=== PATIENT | male | born 1955 | race African-American/Black ===

== ENCOUNTER 2016-07-14 09:24 | Observation (INO) ==
[2016-07-14] MEDS ORDERED: NS 1,000 ML IV ONE (12:08)
[2016-07-14] MEDS ORDERED: LOVENOX 1 MG/KG SUBQ ONE (12:08)
[2016-07-14 12:33] LABS: BASO% 0.2 % (0.0-0.8); EOS# 0.16 X1000 (0.0-0.7); EOS% 2.4 % (0.0-10.0); HEMATOCRIT 44.2 % (42.0-52.0); HEMOGLOBIN 15.2 g/dL (14.0-18.0); IMM GRAN# 0.02 X1000 (0.0-0.04); IMM GRAN% 0.3 % (0.0-0.5); LYMPH# 2.02 X1000 (1.2-3.4); LYMPH% 30.4 % (20.5-51.1); MANUAL DIFF NEEDED? NO; MCH 21.3 PG (27-31); MCHC 34.4 g/dL (33-37); MCV 61.9 FL (81-99); MONO# 0.51 X1000 (0.11-0.59); MONO% 7.7 % (1.7-9.3); MPV 9.7 FL (7.4-10.4); PLT 241 X1000 (130-400); RBC 7.14 XMIL (4.7-6.1)
--- NOTE | 2016-07-14 12:35 | EKG Report ---
Test Performed on : 07/14/2016 12:26:53 PM Test Reason : CHEST PAIN Blood Pressure : / mmHG Vent. Rate : 080 BPM Atrial Rate : 080 BPM P-R Int : 164 ms QRS Dur : 072 ms QT Int : 366 ms P-R-T Axes : 040 086 008 degrees QTc Int : 422 ms Normal sinus rhythm. Normal ECG When compared with ECG of 26-MAR-2008 13:22, T wave inversion now evident in Inferior leads T wave amplitude has increased in Lateral leads Unconfirmed Result
[2016-07-14 12:44] LABS: PROTIME 13.5 Seconds (12.1-15.5)
[2016-07-14 12:45] LABS: PTT PL 27.5 Seconds (22.6-43.9)
[2016-07-14 12:46] LABS: AGAP 13; ALBUMIN 4.2 g/dL (3.5-5.0); ALKALINE PHOSPHATASE 65 U/L (32-122); BUN 16 mg/dL (8-22); CALCIUM 9.3 mg/dL (8.8-10.2); CHLORIDE 102 mmol/L (98-107); CK PROFILE 80 U/L (24-204); COSMO 282; GOT 11 U/L (10-34); GPT 10 U/L (10-44); MAGNESIUM 1.9 mg/dL (1.5-2.7); POTASSIUM 4.3 mmol/L (3.5-5.1); SODIUM 137 mmol/L (136-145); TCO2 22 mmol/L (25-35)
--- NOTE | 2016-07-14 12:54 | PROVIDER DOCUMENTATION ---
This chart was entered by Anisa Norman Scribe, acting as scribe for Saloni Cope MD. HPI-Musculoskeletal Pain/Inj - GENERAL Chief Complaint: Extremity Pain Stated Complaint: EXTREMITY PAIN/POSS BLOOD CLOT Time Seen by Provider: 07/14/16 09:48 Source: patient - HX OF PRESENT ILLNESS-MUSKULOSKELTAL Nature of Presenting Problem: Pt is 61 y/o M presents to the ED with R calf pain. Pt states recently started jogging every other day. Pt denies hx of blood clots. Pt denies trauma or injury. Quality of Pain: reports: aching Severity in ED: mild Onset/Duration: 2 days ago Timing: still present, intermittent Modifying Factors: improves with: nothing Any recent injury?: No Similar Symptoms Previously?: Yes Recently seen or treated by another doctor?: No - LOWER EXTREMITY PAIN/INJURY Lower Extremities Pain: knee: right (posterior), other: right (calf pain) Context / Method of Injury: reports: unknown Associated Symptoms: reports: weakness in legs/feet (R leg) Review of Systems - Adult - REVIEW OF SYSTEMS - ADULT Constitutional: denies: chills, fever Eyes: denies: blurred vision, double vision Ears, Nose, Mouth & Throat: denies: ear pain, nose pain, throat pain, throat swelling Cardiovascular: denies: chest pain, heart murmur, irregular heart rate Respiratory: denies: cough, shortness of breath, wheezing Gastrointestinal: denies: abdominal pain, diarrhea, frequent heartburn, nausea, vomiting Genitourinary: denies: dysuria, hesitency Musculoskeletal: reports: other (R calf pain). denies: bone pain, joint pain, neck pain Integumentary: reports: no symptoms reported Neurological: reports: no symptoms reported Psychiatric: reports: no symptoms reported Endocrine: reports: no symptoms reported Hematologic/Lymphatic: reports: no symptoms reported Allergic/Immunologic: reports: no symptoms reported All Other Systems: Reviewed and Negative Past History - Adult - PAST MEDICAL HISTORY-ADULT Review of Records: reports: Nursing Assessment Review, Medications Reviewed, Social history reviewed & non-contributory. Major Childhood Illnesses: reports: denies history Cardiovascular: reports: denies history Respiratory: reports: denies history Gastrointestinal: reports: denies history Obstetrical/Gynecological: reports: denies history Genitourinary: reports: denies history Musculoskeletal: reports: denies history Neurological: reports: denies history Endocrine/Immune: reports: denies history Other Conditions: reports: denies history - PRIOR SURGERIES/PROCEDURES Surgical/Procedure History: reports: other (kidney sx) - IMMUNIZATION STATUS Childhood Immunizations: See Nurse Assessment Flu Vaccine: See Nurse Assessment - FAMILY HISTORY Family History: reviewed, not pertinent - SOCIAL HISTORY Smoking: cigarettes, less than 1 pack/day Provider spent 3-5 mins advising pt. on dangers of tobacco.: Discussed manners to quit use, and f/u contacts for add'l counseling. Substance Use: denies Living Situation: family Physical Exam-Injury Related - Physical Exam-Injury Related Initial Vital Signs Reviewed: Yes General Appearance: appears well, alert, no apparent distress Eyes: PERRL/EOMI, pink conjunctivae, fundi clear, no AV nicking Head, Ears, Nose, Mouth & Throat: normocephalic/atraumatic, moist mucous membranes, normal ENT inspection, TMs normal, pharynx normal Neck: non-tender, full range of motion, supple, normal inspection Respiratory: chest non-tender, lungs clear, normal breath sounds, no pleuratic chest pain, no respiratory distress, no accessory muscle use Cardiovascular: normal peripheral pulses, regular rate, rhythm, no edema, no gallop, no JVD, no murmur Abdominal Exam: normal bowel sounds, non tender, soft, no organomegaly, no pulsatile mass Lymphatic: no adenopathy Back Exam: normal inspection, no CVA tenderness, no vertebral tenderness Extremity: normal range of motion, normal gait, normal inspection, no pedal edema, no calf tenderness, normal capillary refill, calf tenderness (R) Integumentary: normal color, warm/dry Neurologic: grossly normal Psych/Mental Status: normal mood/affect, oriented x 3 Progress - PLAN OF CARE/RESULTS Progress/Plan/Lab Results: Vital Signs - 8 hr 07/14/16 09:33 Temperature 96.9 F L Pulse Rate 93 H Respiratory Rate 18 Blood Pressure 116/79 O2 Sat by Pulse Oximetry 100 Laboratory Results - last 24 hr 07/14/16 07/14/16 07/14/16 10:23 12:13 12:13 WBC RBC Hgb Hct MCV MCH MCHC RDW Std Deviation Plt Count MPV Immature Gran % (Auto) Neut % (Auto) Lymph % (Auto) Burke % (Auto) Eos % (Auto) Baso % (Auto) Immature Gran # (Auto) Neut # (Auto) Lymph # (Auto) Burke # (Auto) Eos # (Auto) Baso # (Auto) PT INR APTT (Factor Assay) D-Dimer Sodium 137 Potassium 4.3 Chloride 102 Carbon Dioxide 22 L Anion Gap 13 BUN 16 Creatinine 0.9 Estimated GFR/1.73 m2 > 60 BUN/Creatinine Ratio 18 Glucose 223 H POC Glucose 230 H Estimat Average Glucose Hemoglobin A1c Calculated Osmolality 282 Calcium 9.3 Magnesium 1.9 Total Bilirubin 0.40 AST 11 ALT 10 Alkaline Phosphatase 65 Creatine Kinase 80 Troponin T < 0.010 Lta-O-Bidzovzukfg Pept Total Protein 7.0 Albumin 4.2 Globulin 3.0 Albumin/Globulin Ratio 2.0 07/14/16 07/14/16 07/14/16 12:13 12:13 12:13 WBC 6.65 RBC 7.14 H Hgb 15.2 Hct 44.2 MCV 61.9 L MCH 21.3 L MCHC 34.4 RDW Std Deviation 15.9 H Plt Count 241 MPV 9.7 Immature Gran % (Auto) 0.3 Neut % (Auto) 59.0 Lymph % (Auto) 30.4 Burke % (Auto) 7.7 Eos % (Auto) 2.4 Baso % (Auto) 0.2 Immature Gran # (Auto) 0.02 Neut # (Auto) 3.93 Lymph # (Auto) 2.02 Burke # (Auto) 0.51 Eos # (Auto) 0.16 Baso # (Auto) 0.01 PT 13.5 INR 1.00 APTT (Factor Assay) 27.5 D-Dimer 3.74 H Sodium Potassium Chloride Carbon Dioxide Anion Gap BUN Creatinine Estimated GFR/1.73 m2 BUN/Creatinine Ratio Glucose POC Glucose Estimat Average Glucose Hemoglobin A1c Calculated Osmolality Calcium Magnesium Total Bilirubin AST ALT Alkaline Phosphatase Creatine Kinase Troponin T Xkf-D-Fknszgvxqpn Pept < 5 L Total Protein Albumin Globulin Albumin/Globulin Ratio 07/14/16 12:13 WBC RBC Hgb Hct MCV MCH MCHC RDW Std Deviation Plt Count MPV Immature Gran % (Auto) Neut % (Auto) Lymph % (Auto) Burke % (Auto) Eos % (Auto) Baso % (Auto) Immature Gran # (Auto) Neut # (Auto) Lymph # (Auto) Burke # (Auto) Eos # (Auto) Baso # (Auto) PT INR APTT (Factor Assay) D-Dimer Sodium Potassium Chloride Carbon Dioxide Anion Gap BUN Creatinine Estimated GFR/1.73 m2 BUN/Creatinine Ratio Glucose POC Glucose Estimat Average Glucose 206 Hemoglobin A1c 8.8 H Calculated Osmolality Calcium Magnesium Total Bilirubin AST ALT Alkaline Phosphatase Creatine Kinase Troponin T Qlx-N-Utjjphyhthw Pept Total Protein Albumin Globulin Albumin/Globulin Ratio Orders Category Date Time Status Admit - [facility] Routine AdmDCTranf 07/14/16 13:13 Ordered Call Admitting on Arrival AT ADMISSION Care 07/14/16 13:14 Active Cardiac Monitoring DIRECTED Care 07/14/16 12:08 Active FSBS [Finger Stick Blood Sugar (ED)] DIRECTED Care 07/14/16 10:05 Active Saline Loc NOW Care 07/14/16 12:08 Active Vital Signs Order ORDERED Care 07/14/16 13:13 Active CHEST-2 VIEWS [RAD] Stat Exams 07/14/16 12:08 Draft A1C [A1C HGB W EST AVG GLUCOSE] [CHEM] Stat Lab 07/14/16 12:13 Completed CBC WITH ELECTRONIC DIFF [HEME] Stat Lab 07/14/16 12:13 Completed CK PROFILE [SP CHEM] Stat Lab 07/14/16 12:13 Completed COMPREHENSIVE METABOLIC PANEL [CHEM] Stat Lab 07/14/16 12:13 Com[address] D-DIMER PL [COAG] Stat Lab 07/14/16 12:13 Completed MAGNESIUM [CHEM] Stat Lab 07/14/16 12:13 Completed PRO B-NATRIURETIC PEPTIDE Stat Lab 07/14/16 12:13 Completed [address]IME WITH INR PL [COAG] Stat Lab 07/14/16 12:[address] [COAG] Stat Lab 07/14/16 12:13 Completed TROPONIN T Stat Lab 07/14/16 12:13 Completed 0.9% Sodium Chloride Inj [Ns] 1,000 ml Med 07/14/16 12:08 Discontinued IV 999 mls/hr Enoxaparin 1 mg/kg [Lovenox 1 mg/kg] Med 07/14/16 12:08 Discontinued 1 each SUBQ NOW ONE Enoxaparin [Lovenox] Med 07/14/16 13:02 Discontinued 100 mg .ROUTE .STK-MED ONE Telemetry [OM.EQ] Routine Oth 07/14/16 13:13 Active EKG [EKG] Stat Ther 07/14/16 12:08 Draft US [Venous U/S Right Leg] Stat Ther 07/14/16 09:48 Completed Transfer/Admit Order [TRANSFER] Routine Transfer 07/14/16 13:15 Ordered Result Diagrams: 07/14/16 12:13 07/14/16 12:13 - EKG 1 Time of EKG reading by physician:: 12:26 EKG Read and Signed by:: Saloni Cope EKG Interpretation (*Must complete 3 of following elements*): Normal Rate: 80 Rhythm: normal sinus rhythm Comments: normal ECG - ULTRASOUND (By Radiology) 1 US Study: Lower Ext (R) Impression: Abnormal US Results: positive DVT from mid thigh down per US tech - CONSULTS/PCP/HOSPITALIST Notification #1 *Consult/PCP/Hospitalist*: Dr. Fair Time Discussed: 13:09 (Dr. Fair accepted admit ) Reason/Comments: Dr. Cope consulted with Dr. Fair about admit of Pt Consult Disposition: Admit Departure - Departure Time of Disposition Decision: 13:00 DIAGNOSIS: DVT (deep venous thrombosis) Qualifiers: DVT location: lower extremity Affected thrombotic vein of extremity: unspecified vein of extremity Laterality: right Chronicity: acute Qualified Code (s): I82.401 - Acute embolism and thrombosis of unspecified deep veins of right lower extremity Disposition: ADMITTED INPATIENT 09 Certified Medical Emergency: Emergent Condition: Stable Additional Freetext Instructions: ED Follow Up Instructions: You have been treated by a care provider in the Emergency Department. These instructions are being provided to you so you can have an understanding of how to care for yourself upon discharge. Upon discharge from the Emergency Department, you are responsible for making arrangements for follow-up care by a physician of your choice. Take all prescribed medications as directed. Return to the Emergency Department immediately for any new or worsening symptoms. You may call the Physician Referral phone number at [phone] to obtain a list of Physicians who are taking new patients. Referrals and Follow-Ups: Diogenes Vasquez MD [Primary Care Provider] - This chart was documented by the itz scribe, (Anisa Norman Scribe) and accurately reflects the services I performed and decisions made by me, Saloni Cope MD, as attested by the provider's signature.
[2016-07-14] MEDS ORDERED: LOVENOX ONE (13:02)
--- NOTE | 2016-07-14 13:25 | Diag Imaging Result Document ---
PROCEDURE NAME: CHEST-2 VIEWS - 07/14/2016 TWO VIEWS OF THE CHEST: FINDINGS: The lungs are better expanded than on 12/25/2014, otherwise, there has been no significant change. IMPRESSION: No acute disease.
[2016-07-14 13:37] LABS: HEMOGLOBIN A1C 8.8 % (4.8-6.0)
[2016-07-14] MEDS ORDERED: ZOFRAN IV PRN (14:33)
--- NOTE | 2016-07-14 16:17 | HISTORY AND PHYSICAL ---
PRIMARY CARE PHYSICIAN: Dr. Diogenes Vasquez. CHIEF COMPLAINT: Right leg pain. HISTORY OF PRESENT ILLNESS: This is a very pleasant, 61-year-old gentleman with a history of diabetes mellitus and prostate cancer. He presented to the emergency room complaining of pain in his right leg. He states that he has been walking and has progressed to running over the last 2-3 months, and for the last 3 days he has had right calf pain and he felt like he could feel "a cord" in his calf, so he came in for evaluation. He was found to have a D- dimer of 3.74, lower extremity Doppler was performed that revealed a DVT from mid thigh on the right down, preliminary report. He was given Lovenox 2 mg/kg subcutaneous and he is being admitted for further evaluation and treatment. He denies any chest pain, shortness of breath, palpitations. PAST MEDICAL HISTORY: Prostate cancer, status post robotic prostatectomy in March 2016. Diabetes mellitus. Tobacco use. PAST SURGICAL HISTORY: Robotic prostatectomy March 2016. Prostate biopsy in 2011. SOCIAL HISTORY: He denies alcohol or illicit drug use. He does smoke occasionally, but not every day. ALLERGIES: Sulfa which causes a rash. HOME MEDICATIONS: Janumet 500/1000 b.i.d. REVIEW OF SYSTEMS: A 14 point review of systems is discussed with patient with pertinent positives being pain in his right calf. He denied chest pain, palpitations, syncope, dizziness, shortness of breath, PND, orthopnea, cough, fever, chills, recent weight loss or weight gain, nausea, vomiting, diarrhea, constipation, black or bloody vomitus, black or bloody stool. LABORATORY/DIAGNOSTICS: WBC is 6.65 with hemoglobin 15.2, hematocrit 44.2, and platelets of 241,000. D-dimer is 3.74, sodium 137, potassium 4.3, BUN 16, creatinine 0.9, glucose of 230. Hemoglobin A1c is 8.8, with troponin of less than 0.010. Lower extremity Doppler reveals DVT from mid thigh down on the right. ASSESSMENT: 1. Right lower extremity deep venous thrombosis. 2. Diabetes mellitus. 3. Prostate cancer status post robotic prostatectomy. PLAN: He will be admitted to the hospital. Placed on telemetry. He was given Lovenox in the emergency room. We will verify Xarelto coverage with his insurance. If this is affordable, we will start Xarelto. He states that his mother had a blood clot in the past. It could have been after surgery. He is not sure. We will go ahead and draw the hyper coagulable workup. He can follow up with his primary care physician regarding this and be directed for any further follow up he may need. We will check blood sugars and use sliding scale insulin. Further treatments pending hospital course. Dictated by MARITZA Gordon for Giovanni Fair MD cc: MARITZA Gordon MD
[2016-07-14] MEDS ORDERED: HUMALOG DOSE (PARKWAY) SUBQ SCH (21:00)
[2016-07-14] MEDS: XARELTO PO SCH (21:06)
[2016-07-14] MEDS: HUMALOG DOSE (PARKWAY) SUBQ SCH ×2 (21:06→21:07)
[2016-07-15 06:25] LABS: HEMATOCRIT 41.1 % (42.0-52.0); HEMOGLOBIN 14.1 g/dL (14.0-18.0); MCH 21.3 PG (27-31); MCHC 34.3 g/dL (33-37); MCV 62.2 FL (81-99); MPV 9.5 FL (7.4-10.4); RBC 6.61 XMIL (4.7-6.1)
[2016-07-15] MEDS: HUMALOG DOSE (PARKWAY) SUBQ SCH (06:25)
[2016-07-15 06:46] LABS: AGAP 12; BUN 17 mg/dL (8-22); CALCIUM 8.9 mg/dL (8.8-10.2); CHLORIDE 104 mmol/L (98-107); COSMO 284; POTASSIUM 4.4 mmol/L (3.5-5.1); SODIUM 138 mmol/L (136-145); TCO2 22 mmol/L (25-35)
--- NOTE | 2016-07-15 07:21 | Extremity Venous Study ---
PROCEDURE NAME: Venous U/S Right Leg - 07/14/2016 VENOUS ULTRASOUND OF THE RIGHT LEG: FINDINGS: The mid femoral vein on the right is incompletely compressible. There is incomplete occlusion to color Doppler flow however. The thrombus continues through the distal femoral vein into the popliteal vein and peroneal vein. No evidence of superficial venous thrombosis is present. There are no previous studies. No abnormal fluid collections are present. IMPRESSION: Deep venous thrombosis in the [id number] femoral vein, popliteal vein and peroneal veins on the right.
[2016-07-15 07:23] VITALS: BP 123/79
[2016-07-15] MEDS: XARELTO PO SCH (09:23)
--- NOTE | 2016-07-15 09:25 | DISCHARGE SUMMARY ---
ADMISSION DATE: 07/14/2016 DISCHARGE DATE: 07/15/2016 DISCHARGE DIAGNOSES: 1. Deep venous thrombosis, right lower extremity. 2. Prostate cancer, status post robotic prostatectomy. 3. Diabetes mellitus. CONSULTATIONS: None. PROCEDURES: None. BRIEF HOSPITAL COURSE: The patient is a 61-year-old, elderly male, who presented to the emergency department as noted with swelling and pain, was subsequently diagnosed with a DVT in his right lower extremity, was placed on Xarelto, which he tolerated very well. DISPOSITION: 35 minutes were spent in discharge planning and instructions. The patient will be discharged home. He will follow up outpatient with primary care of his choice. I believe he sees Dr. Vasquez. He will continue Xarelto twice a day, 15 mg for 21 days, and then switch to 20 mg once a day for the next 5 to 6 months. Clotting factors have been drawn and sent off. They are not currently resulted, and this will need to be followed up by his primary care. The patient is aware. cc: Giovanni Fair MD
== END 2016-07-15 10:20 | disposition home or self-care (01) ==
LOC: P.ED 09:24 → P.MEDSURG 09:25 → INTOOBSV 09:25
PROVIDERS: ATTEND Family Medicine